=== PATIENT | female | born 1950 | race Caucasian/White ===

== ENCOUNTER 2017-11-03 16:20 | Inpatient (IN) ==
[2017-11-03 17:40] LABS: Basophils # 0.1 10*3/uL (0.0-0.2); Basophils % 0.4 % (0.0-0.8); Eosinophils % 0.1 % (0.00-10.9); Hematocrit 40.6 VOL% (35.7-47.0); Hemoglobin 13.2 GM/DL (12.0-16.0); Immature Granulocytes % 0.6 %; Immature Granulocytes Absolute 0.08 #; Lymphocytes # 1.5 10*3/uL (1.4-4.0); Lymphocytes % 10.3 % (21.3-54.2); Mean Corpuscular HGB Conc 32.5 GM/DL (32-36); Mean Corpuscular Hemoglobin 31 PG (27-34); Mean Corpuscular Volume 95.5 FL (87-102); Mean Platelet Volume 9.9 FL (9.6-12.0); Monocytes # 1.1 10*3/uL (0.11-0.8); Monocytes % 7.7 % (1.7-12.7); Neutrophils # 11.5 10*3/uL (1.4-7.4); Neutrophils % 80.9 % (38.7-73.9); Platelet Count 430 T/CUMM (130-400); Red Blood Count 4.25 MC/CUMM (3.8-5.5); Red Cell Distribution Width 13.2 % (9.3-17.3); White Blood Count 14.2 T/CUMM (4-12)
[2017-11-03 17:58] LABS: Blood Urea Nitrogen 22 MG/DL (7-18); Calcium 8.8 MG/DL (8.5-10.1); Glucose 64 MG/DL (74-106); Osmolality,Calculated 275.7 MOS/KG (273-304); Sodium 138 MMOL/L (136-145)
[2017-11-03] MEDS ORDERED: DEXTROSE 50% 25 GM/50 ML VIAL IV STA (18:42)
[2017-11-03] MEDS ORDERED: DEXTROSE 50% 25 GM/50 ML VIAL IV ONE (18:47)
[2017-11-03] MEDS: SODIUM CHLORIDE 0.9% 1,000 ML IV SCH (19:46)
[2017-11-04 00:11] LABS: Apearance,Urine Slightly Hazy (Clear); Bacteria,Urine Occasional /HPF (Few); Bilirubin,Urine Negative (Negative); Blood, Urine Moderate mg/dL (Negative); Glucose,Urine (UA) 150 mg/dL (Negative); Hyaline Casts,Urine 3 /LPF (0-3); Ketones,Urine 80 mg/dL (Negative); Nitrite,Urine Negative (Negative); Protein,Urine Negative; RBC,Urine 4 /HPF (0-4); Squamous Epithelial Cell,Urine Occasional /HPF (0-10); Urine Color Yellow (Yellow); Urine Specific Gravity 1.018 (1.001-1.035); Urine Urobilinogen < 2.0 EU/DL (0.2-1.0); WBC,Urine 4 /HPF (0-6)
[2017-11-04] MEDS: DEXTROSE 5% NACL 0.9% 1,000 ML IV SCH ×3 (01:06→13:14)
[2017-11-04] MEDS: cefTRIAXone 2,000 MG in SYRINGE 1 EACH IV SCH (01:13)
[2017-11-04] MEDS ORDERED: DEXTROSE 50% 25 GM/50 ML VIAL IV PRN (02:03)
[2017-11-04 06:40] LABS: Basophils % 0.2 % (0.0-0.8); Eosinophils # 0.1 10*3/uL (0.0-0.87); Eosinophils % 0.4 % (0.00-10.9); Hematocrit 38.3 VOL% (35.7-47.0); Hemoglobin 13.2 GM/DL (12.0-16.0); Immature Granulocytes % 0.6 %; Immature Granulocytes Absolute 0.08 #; Lymphocytes # 1.3 10*3/uL (1.4-4.0); Lymphocytes % 9.7 % (21.3-54.2); Mean Corpuscular HGB Conc 34.5 GM/DL (32-36); Mean Corpuscular Hemoglobin 31 PG (27-34); Mean Corpuscular Volume 89.3 FL (87-102); Mean Platelet Volume 9.9 FL (9.6-12.0); Monocytes # 1.2 10*3/uL (0.11-0.8); Monocytes % 9.3 % (1.7-12.7); Neutrophils # 10.4 10*3/uL (1.4-7.4); Neutrophils % 79.8 % (38.7-73.9); Platelet Count 423 T/CUMM (130-400); Red Blood Count 4.29 MC/CUMM (3.8-5.5); Red Cell Distribution Width 13.2 % (9.3-17.3); White Blood Count 13.1 T/CUMM (4-12)
[2017-11-04 07:01] LABS: Albumin 3.7 G/DL (3.4-5.0); Bilirubin,Total 1.1 MG/DL (0.2-1.0); Calcium 8.4 MG/DL (8.5-10.1); Osmolality,Calculated 267.2 MOS/KG (273-304); Potassium 2.9 MMOL/L (3.5-5.1); Total Protein 7.2 G/DL (6.4-8.3)
[2017-11-04] MEDS ORDERED: POTASSIUM CHLORIDE RIDER 10 MEQ in PREMIX 1 EACH IV PRN (07:18)
[2017-11-04] MEDS ORDERED: ENOXAPARIN 40 MG/0.4 ML SYRINGE SUBCUT SCH (09:00)
[2017-11-04] MEDS: POTASSIUM CHLORIDE 20 MEQ TABLET PO PRN ×4 (10:10→18:09)
[2017-11-04] MEDS: SODIUM CHLORIDE 0.9% 1,000 ML IV SCH (12:32)
[2017-11-04 13:44] LABS: Barbiturates Screen,Urine Negative (Negative); Benzodiazepines Screen,Urine Negative (Negative); Cannabinoid Screen,Urine Negative (Negative); Opiate Screen,Urine Negative (Negative); Phencyclidine Screen,Urine Negative (Negative)
[2017-11-04 15:42] LABS: Thyroid Stimulating Hormone 0.784 uIU/ml (0.358-3.74)
[2017-11-04 16:09] LABS: Vitamin B12 973 PG/ML (211-911)
[2017-11-04 17:37] LABS: Basophils % 0.2 % (0.0-0.8); Eosinophils # 0.1 10*3/uL (0.0-0.87); Eosinophils % 0.4 % (0.00-10.9); Hematocrit 37.7 VOL% (35.7-47.0); Hemoglobin 12.5 GM/DL (12.0-16.0); Immature Granulocytes % 0.6 %; Immature Granulocytes Absolute 0.07 #; Lymphocytes # 1.6 10*3/uL (1.4-4.0); Lymphocytes % 12.9 % (21.3-54.2); Mean Corpuscular HGB Conc 33.2 GM/DL (32-36); Mean Corpuscular Hemoglobin 31 PG (27-34); Mean Corpuscular Volume 93.3 FL (87-102); Mean Platelet Volume 11.1 FL (9.6-12.0); Monocytes # 1.2 10*3/uL (0.11-0.8); Monocytes % 9.8 % (1.7-12.7); Neutrophils # 9.4 10*3/uL (1.4-7.4); Neutrophils % 76.1 % (38.7-73.9); Platelet Count 386 T/CUMM (130-400); Red Blood Count 4.04 MC/CUMM (3.8-5.5); Red Cell Distribution Width 13.1 % (9.3-17.3); White Blood Count 12.4 T/CUMM (4-12)
[2017-11-04 17:50] LABS: Albumin 3.2 G/DL (3.4-5.0); Bilirubin,Total 0.6 MG/DL (0.2-1.0); Calcium 8.4 MG/DL (8.5-10.1); Osmolality,Calculated 264.4 MOS/KG (273-304); Potassium 3.6 MMOL/L (3.5-5.1); Total Protein 6.9 G/DL (6.4-8.3)
[2017-11-04] MEDS ORDERED: traZODone 50 MG TABLET PO SCH ×2 (19:00→21:00)
[2017-11-04] MEDS: QUEtiapine 25 MG TABLET PO SCH (21:35)
[2017-11-05] MEDS: DEXTROSE 5% NACL 0.9% 1,000 ML IV SCH ×3 (00:01→17:58)
[2017-11-05] MEDS: cefTRIAXone 2,000 MG in SYRINGE 1 EACH IV SCH (01:26)
[2017-11-05] MEDS: ZIPRASIDONE 20 MG/1 ML VIAL IM PRN ×2 (02:05→19:19)
[2017-11-05 08:50] LABS: INR 1.1; PT Patient Result 10.8 SECS; PT Patient Result 11.1 SECS
[2017-11-05] MEDS ORDERED: CLINDAMYCIN INJ 900 MG in PREMIX 1 EACH IV ONE (09:00)
[2017-11-05] MEDS ORDERED: BUPIVACAINE MPF 0.25% /EPI 30 ML VIAL ONE (09:37)
[2017-11-05] MEDS ORDERED: HEPARIN 5,000 UNIT/1 ML VIAL ONE (09:37)
[2017-11-05] MEDS ORDERED: LIDOCAINE 1%/EPI INJ 20 ML VIAL ONE (09:37)
[2017-11-05] MEDS ORDERED: TISSUE ADHESIVE 1 EACH APPLICATOR TOP ONE (11:35)
[2017-11-05] MEDS ORDERED: PROPOFOL 200 MG/20 ML VIAL IV ONE (12:37)
[2017-11-05] MEDS ORDERED: fentaNYL 100 MCG/2 ML VIAL ONE (12:38)
[2017-11-05 15:50] LABS: Glucose,CSF 87 MG/DL (40-70)
[2017-11-05 16:34] LABS: Lymphocytes,CSF 67 %; Neutrophils,CSF 33 %; White Blood Cell,CSF < 1 C/CUMM
[2017-11-05 16:35] LABS: Appearance,CSF Clear; Red Blood Cell,CSF 70 C/CUMM
[2017-11-05] MEDS: QUEtiapine 25 MG TABLET PO SCH ×2 (19:18→20:09)
[2017-11-06] MEDS: cefTRIAXone 2,000 MG in SYRINGE 1 EACH IV SCH (01:26)
[2017-11-06 09:08] LABS: Basophils % 0.4 % (0.0-0.8); Eosinophils # 0.2 10*3/uL (0.0-0.87); Hematocrit 39.7 VOL% (35.7-47.0); Immature Granulocytes % 0.5 %; Immature Granulocytes Absolute 0.05 #; Lymphocytes # 1.4 10*3/uL (1.4-4.0); Lymphocytes % 13.5 % (21.3-54.2); Mean Corpuscular HGB Conc 32.7 GM/DL (32-36); Mean Corpuscular Hemoglobin 31 PG (27-34); Mean Corpuscular Volume 93.9 FL (87-102); Mean Platelet Volume 10.2 FL (9.6-12.0); Monocytes # 0.9 10*3/uL (0.11-0.8); Monocytes % 8.5 % (1.7-12.7); Neutrophils % 75.1 % (38.7-73.9); Platelet Count 395 T/CUMM (130-400); Red Blood Count 4.23 MC/CUMM (3.8-5.5); Red Cell Distribution Width 13.4 % (9.3-17.3); White Blood Count 10.7 T/CUMM (4-12)
[2017-11-06 09:35] LABS: Calcium 9.1 MG/DL (8.5-10.1); Osmolality,Calculated 272.7 MOS/KG (273-304); Potassium 4.1 MMOL/L (3.5-5.1)
[2017-11-06] MEDS: QUEtiapine 25 MG TABLET PO SCH (20:02)
[2017-11-07] MEDS: cefTRIAXone 2,000 MG in SYRINGE 1 EACH IV SCH (00:46)
[2017-11-07] MEDS: ZIPRASIDONE 20 MG/1 ML VIAL IM PRN (01:19)
[2017-11-07 11:31] LABS: VDRL Spinal Fluid Negative (Negative)
[2017-11-07] MEDS ORDERED: HEPARIN LOCK FLUSH 500 UNIT/5 ML SYRINGE IV ONE (12:02)
[2017-11-07] MEDS ORDERED: BISACODYL 10 MG SUPP RECTAL ONE (12:14)
[2017-11-07 17:13] VITALS: BP 142/78
[2017-11-08 14:51] LABS: M. Tuberculosis PCR Result Negative (Negative); M. Tuberculosis PCR Source CSF
== END 2017-11-07 14:10 | DRG 52 ==
LOC: EDUNIT# → EDBD → N.ED 16:20 → SUATTDRO 22:23 → N.EDINP 22:23 → N.5E 23:49
PROVIDERS: ADMIT Internal Medicine Infectious Disease; ATTEND Internal Medicine